=== PATIENT | female | born 1970 | race Hispanic/Latino ===

== ENCOUNTER → 2019-12-31 | Outpatient (CLI) | payer OTHER | END | disposition home or self-care (01) | LOC: RAH 09:46 | PROVIDERS: ATTEND Family Medicine | DX: Z12.31 Encounter for screening mammogram for malignant neoplasm of breast (principal) | CPT/HCPCS: 77067 ==

== ENCOUNTER → 2020-12-30 | Outpatient (CLI) | payer BC | END | disposition home or self-care (01) | LOC: RAH 09:50 | PROVIDERS: ATTEND Internal Medicine | DX: Z12.31 Encounter for screening mammogram for malignant neoplasm of breast (principal); N64.89 Other specified disorders of breast | CPT/HCPCS: 77067 ==

== ENCOUNTER → 2021-12-31 | Outpatient (CLI) | payer BC | END | disposition home or self-care (01) | LOC: RAH 08:47 | PROVIDERS: ATTEND Internal Medicine | DX: Z12.31 Encounter for screening mammogram for malignant neoplasm of breast (principal) | CPT/HCPCS: 77067 ==

== ENCOUNTER → 2024-06-15 | Outpatient (CLI) | payer BC ==
--- NOTE | 2024-06-15 10:39 | HMCIMG ---
SCREENING MAMMOGRAM REASON: Annual Exam COMPARISON: 01/06/2023 TECHNIQUE: CC and MLO views of the bilateral breasts were performed.CAD was performed as well. FINDINGS: Parenchymal density: The breasts are almost entirely fatty. There are no focal mass lesions. There are no pathologic appearing calcifications. There is no evidence of architectural distortion or skin thickening. IMPRESSION: Normal screening mammogram The patient was entered into a reminder system with a target due date for their next mammogram. BI-RADS CATEGORY 1: NEGATIVE Recommend monthly self breast exam as well as annual clinical examination. A negative x-ray should not delay biopsy if a dominant or clinically suspicious mass is present, since 8-10% of cancers are not identified by mammography. Dense breasts particularly, may obscure an underlying neoplasm. Some of these may be detected clinically and therefore, clinical examination is an essential part of breast evaluation.
== END | disposition home or self-care (01) ==
LOC: RAH 09:19
PROVIDERS: ATTEND Internal Medicine
DX: Z12.31 Encounter for screening mammogram for malignant neoplasm of breast (principal)
CPT/HCPCS: 77067

== ENCOUNTER 2024-08-04 20:06 | Emergency (ER) | payer BC ==
[~2024-08-04] VITALS: Ht 162.6 cm; Wt 133.8 kg
[2024-08-04 20:41] LABS: APPEARANCE,URINE CLOUDY (CLEAR); BILIRUBIN,URINE NEGATIVE (NEGATIVE); COLOR,URINE YELLOW (YELLOW); GLUCOSE, URINE (UA) NEGATIVE (NEGATIVE); KETONES,URINE NEGATIVE (NEGATIVE); LEUKOCYTE ESTERASE ,URINE 250 Leu/uL (NEGATIVE); NITRATE,URINE 2+ (NEGATIVE); OCCULT BLOOD,URINE NEGATIVE (NEGATIVE); PH,URINE 6.5 (5.0-8.0); PROTEIN,URINE 10 mg/dL (NEGATIVE); UROBILINOGEN,URINE 0.2 mg/dL (0.2-1.0)
[2024-08-04 20:44] LABS: ADD UA MICROSCOPIC YES
[2024-08-04 20:45] LABS: BACTERIA,URINE RARE /HPF (None Seen); MUCUS,URINE RARE LPF (None Seen); SQUAMOUS EPITHELIAL CELL,UR MANY /HPF (0-2)
--- NOTE | 2024-08-04 20:47 | ERN ---
ED Note History of Present Illness Stated Complaint: ABD PAIN Chief Complaint: Abdominal Pain Time Seen by MD: 20:07 Time Seen by Midlevel: 20:07 Dictation: Patient is a 54-year-old female with a history of hypertension, prediabetes, umbilical hernia repair in 2014 who presents to the emergency department with complaints lower abdominal pain onset this afternoon. Patient reports painful urination. Denies any hematuria, nausea vomiting or diarrhea, constipation, fevers. Allergies: Coded Allergies: No Known Drug Allergies (Unverified Allergy, Unknown, 08/04/24) Home Meds Active Scripts Nitrofurantoin Monohyd/M-Cryst (Macrobid 100 mg Capsule) 100 Mg Capsule, 1 CAP PO BID for 5 Days, #10 CAP 0 Refills Prov:NALLELYGREYARIEL BUSINESS SERVICES VICE PRESIDENT 08/04/24 Phenazopyridine HCl (Phenazopyridine HCl) 200 Mg Tablet, 1 TAB PO TID for urin alexia discomfort for 2 Days, #6 TAB 0 Refills after food Prov:ARIEL BROWNING 08/04/24 Past Medical History Past Medical History: Hypertension Surgical History: RN Note Reviewed/Agreed w/PFSH: Yes Review of System Dictation Constitutional: Negative for fever,chills, and weight loss Eyes: Negative for injury, pain,redness, and discharge ENT: Negative for injury,pain or swelling Cardiovascular: Negative for chest pain, palpitations, and edema Respiratory: Negative for shortness of breath, cough, and wheezing, Abdomen/GI: Negative for nausea, vomiting, diarrhea, and constipation positive for abdominal pain, Back: Negative for injury and pain : Negative for injury, bleeding and discharge positive for painful urination MS/Extremity: Negative for injury and deformity Skin: Negative for rash, and discoloration Neuro: Negative for headache, weakness, numbness, tingling, and seizure Psych: Negative for suicide ideation, homicidal ideation, and hallucinations Initial Vital Sign VS Vital Signs Date Time Temp Pulse Resp B/P (MAP) Pulse Ox O2 Delivery O2 Flow Rate FiO2 08/04/24 20:17 98.1 91 18 148/95 98 0 08/04/24 20:57 Room Air* 21 Physical Exam Dictation Vital Signs reviewed General Appearance: Alert, oriented x 3, no acute distress, well developed, nourished. Obese Head and Face: non-traumatic. Eyes: PERRL, pink conjunctivas, eyelid no trauma, anterior chamber with arcus senilis. Ears: Pinnas intact and no signs of trauma or erythema ear canals clear and no discharge TM no erythema Nose: No discharge, no bleeding. Oropharynx: Mouth normal, tongue pink. pharynx clear,no erythema, tonsils no exudates, no abscesses noted, mucous membrane moist Neck: Supple, non-tender, no thyromegaly, no masses, no JVD, no bruits Breast:Deferred Chest:No tenderness, no crepitus, no paradoxical movement, no retractions Lungs:Clear, well-ventilated, symmetric, no rales, no wheezing, no rhonchi, no stridor, good breath sounds bilaterally Heart: Regular rate, regular rhythm, no murmur, no gallops Vascular: no peripheral edema, Abdomen: Soft, positive bowel sounds, nondistended, no guarding, Tender to left and right lower quadrant, no rebound, no masses no hepatomegaly, no splenomegaly, no Lozoya's sign, no hernias. Rectal: Deferred Genital: Deferred Neurological: Normal speech, motor function intact, sensory function intact Musculoskeletal: Neck nontender, full range of motion, back nontender, full range of motion, Extremities: nontender, full range of motion Skin: Color pink, dry, no turgor, no rash, no lacerations, no abrasions, no contusions. Lymphatic: Deferred Results (Laboratory/Radiology) Laboratory/Radiology Laboratory Tests Test 08/04/24 20:29 08/04/24 20:50 Urine Color YELLOW (YELLOW) Urine Appearance CLOUDY (CLEAR) H Urine pH 6.5 (5.0-8.0) Urine Specific [place] 1.028 (1.001-1.031) Urine Protein 10 mg/dL (NEGATIVE) H Urine Glucose (UA) NEGATIVE mg/dL (NEGATIVE) Urine Ketones NEGATIVE mg/dL (NEGATIVE) Urine Occult Blood NEGATIVE (NEGATIVE) Urine Nitrate 2+ (NEGATIVE) H Urine Bilirubin NEGATIVE mg/dL (NEGATIVE) Urine Urobilinogen 0.2 mg/dL (0.2-1.0) Urine Leukocyte Esterase 250 Arabella/uL (NEGATIVE) H Urine RBC 6-10 /HPF (0-1) H Urine WBC 11-25 /HPF (0-1) H Urine Squamous Epithelial Cells MANY /HPF (0-2) Urine Bacteria RARE /HPF (None Seen) White Blood Count 6.3 K/uL (4.8-10.8) Red Blood Count 4.82 MIL/uL (4.00-5.50) Hemoglobin 13.1 g/dL (12.0-16.0) Hematocrit 41.0 % (36-48) Mean Corpuscular Volume 85.1 fL (79-99) Mean Corpuscular Hemoglobin 27.2 pg (27.0-33.0) Mean Corpuscular Hemoglobin Concent 32.0 g/dL (32.0-36.0) Red Cell Distribution Width 13.2 % (11.0-15.5) Platelet Count 183 K/uL (130-400) Mean Platelet Volume 11.7 fL (7.5-10.5) H Immature Granulocyte % (Auto) 0.2 % (0-1) Neutrophils (%) (Auto) 69.6 % (40.0-77.0) Lymphocytes (%) (Auto) 22.6 % (21.0-51.0) Monocytes (%) (Auto) 4.4 % (3.0-13.0) Eosinophils (%) (Auto) 3.0 % (0.0-8.0) Basophils (%) (Auto) 0.2 % (0.0-5.0) Neutrophils # (Auto) 4.4 K/uL (1.8-7.7) Lymphocytes # (Auto) 1.4 K/uL (1.0-4.8) Monocytes # (Auto) 0.3 K/uL (0.1-1.0) Eosinophils # (Auto) 0.19 K/uL (0.00-0.70) Basophils # (Auto) 0.01 K/uL (0.00-0.20) Absolute Immature Granulocyte (auto 0.01 K/uL (0-1) Nucleated Red Blood Cells 0.0 % (0.0-0.19) Sodium Level 140 mmol/L (136-145) Potassium Level 4.2 mmol/L (3.5-5.1) Chloride Level 102 mmol/L (101-111) Carbon Dioxide Level 33 mmol/L (21-32) H Blood Urea Nitrogen 10 mg/dL (7-18) Creatinine 0.5 mg/dL (0.5-1.0) Glomerular Filtration Rate Calc 111 mL/min (>90) Random Glucose 129 mg/dL (70-105) H Total Calcium 9.1 mg/dL (8.5-10.1) Total Creatine Kinase 79 U/L (21-232) Troponin I High Sensitivity 4.0 ng/L (4-50) Lipase 45 U/L (16-77) REASON: lower abd pain right and left ORDERING PHYSICIAN: ARIEL BROWNING PROCEDURE: ABD PEL W - CT ABDOMEN/PELVIS W/CONTRAST CT ABDOMEN/PELVIS W/CONTRAST HISTORY: Abdominal pain COMPARISON: None TECHNIQUE: Multiple sequential axial images of the abdomen and pelvis were obtained from the dome of the diaphragm through symphysis pubis. Patient was given 75 cc of Isovue through intravenous route. Oral contrast was not given. FINDINGS: No pleural effusion is seen bilaterally. There is no evidence of parenchymal disease or pulmonary nodule of the visualized lower lungs. Degenerative changes of the thoracolumbar spine are present. The heart is not enlarged. Liver is enlarged and fatty changes measuring 23 cm. Gallbladder is distended. The liver, spleen, adrenal glands and pancreas are unremarkable. There is no evidence of hydronephrosis bilaterally. No evidence of renal stone is seen. Fecal material is seen in the colon. There are normal size retroperitoneal and mesenteric lymph nodes. No ascites is seen. Atherosclerotic changes are present. There is fluid-filled colon may be related to enterocolitis. Pelvic sidewalls are symmetric bilaterally. Bladder is poorly distended. IMPRESSION: 1. Fluid-filled colon may be related to enterocolitis. Fecal material is seen in the colon. Labs Reviewed?: Yes EKG: (+) rhythm (Sinus rhythm) EKG Comment: Date:08/04/2024 Time:2044 Ventricular rate:88 MS interval:160 QRS duration:80 QT/QTc:480 EKG interpretation: Sinus rhythm Reviewed by ED Attending ED Course ED Course Orders Procedure Category Date Status Time Vital Signs Per CPOE 08/04/24 Transmitted Routine 20:20 Saline Lock Iv CPOE 08/04/24 Transmitted 20:20 Cbc With Differential LAB 08/04/24 Complete 20:20 Urinalysis Profile LAB 08/04/24 Complete 20:20 Basic Metabolic Panel LAB 08/04/24 Complete 20:20 0.9%Nacl 1000ml (Ns PHA 08/04/24 Complete 1000ml) 21:00 Morphine 4mg Syg PHA 08/04/24 Complete (Morphine 4mg Syg) 21:00 Ondansetron 4mg Inj PHA 08/04/24 Complete (Zofran 4mg Inj) 21:00 12 Lead Ekg Tracing- EKG 08/04/24 Complete Technical 20:36 Culture Urine JAMES 08/04/24 In Process 20:44 Cardiac Panel LAB 08/04/24 Complete 20:20 Lipase LAB 08/04/24 Complete 20:20 Ct Abdomen/Pelvis CT 08/04/24 Resulted W/Contrast 21:24 Ceftriaxone 1g Vial PHA 08/04/24 Complete (Rocephine 1g Inj) 22:00 Iohexol (Omnipaque) PHA 08/04/24 Complete 22:16 Current Medications Medications (Trade) Dose Ordered Sig/Alex Route PRN Reason Start Time Stop Time Status Last Admin Dose Admin Ceftriaxone Sodium (ROCEphine 1G INJ) 1 gm ONCE ONCE IVPB 08/04/24 22:00 08/04/24 22:01 DC 08/04/24 22:14 Iohexol (Omnipaque) 75 ml STK-MED ONCE IV 08/04/24 22:16 08/04/24 22:16 DC Morphine Sulfate (morPHINE 4MG SYG) 4 mg ONCE ONCE IVP 08/04/24 21:00 08/04/24 21:01 DC 08/04/24 21:34 Ondansetron HCl (zoFRAN 4MG INJ) 4 mg ONCE ONCE IVP 08/04/24 21:00 08/04/24 21:01 DC 08/04/24 21:33 Sodium Chloride 1,000 ml @ 125 mls/hr ONCE ONCE IV 08/04/24 21:00 08/04/24 23:02 DC 08/04/24 21:33 Vital Signs Date Time Temp Pulse Resp B/P (MAP) Pulse Ox O2 Delivery O2 Flow Rate FiO2 08/04/24 23:01 98.1 88 18 132/88 98 Room Air* 0 08/04/24 20:57 98.1 91 18 148/95 98 Room Air* 0 08/04/24 20:17 98.1 91 18 148/95 98 0 Medical Decision Making MDM Patient is a 54-year-old female with a history of hypertension, prediabetes, umbilical hernia repair in 2014 who presents to the emergency department with complaints lower abdominal pain onset this afternoon. Patient reports painful urination. Denies any hematuria, nausea vomiting or diarrhea, constipation, fevers. CBC showed no leukocytosis, no anemia, chemistry showed no electrolyte imbalance, normal renal function, negative lipase, negative troponin, urinalysis positive for leukocyte esterase and nitrites. CT showed fluid-filled colon may be related to enterocolitis your fecal material seen in the colon. Patient with suprapubic abdominal pain. The probably related to UTI. We will be treated with the antibiotics. Patient in no acute distress, nontoxic appearance. Differential diagnosis: UTI, diverticulitis, dehydration, appendicitis Need for hospitalization: Patient does not meet criteria for hospitalization. There are no social concerns with this patient. DX & DISP Disposition: Discharge Departure Impression: Primary Impression: UTI (urinary tract infection) Additional Impression: Abdominal pain Condition: Stable Scripts Nitrofurantoin Monohyd/M-Cryst (Macrobid 100 mg Capsule) 100 Mg Capsule 1 CAP PO BID for 5 Days, #10 CAP 0 Refills Prov: ARIEL BROWNING BUSINESS SERVICES VICE PRESIDENT 08/04/24 Phenazopyridine HCl (Phenazopyridine HCl) 200 Mg Tablet 1 TAB PO TID for urinary discomfort for 2 Days, #6 TAB 0 Refills after food Prov: ARIEL BROWNING BUSINESS SERVICES VICE PRESIDENT 08/04/24 Additional Instructions: Please take full course of antibiotics as prescribed. azo will help with your symptoms but does not treat your infection so make sure you take antibiotics. It may also change the color of your urine. Please follow up with pcp and urine culture. FOLLOW-UP WITH PRIMARY CARE PROVIDER IN 1 TO 2 DAYS. TAKE MEDICATIONS DIRECTED HERE IN THE EMERGENCY ROOM. OKAY TO CONTINUE HOME MEDICATIONS UNLESS OTHERWISE DISCUSSED DURING YOUR VISIT IN THE EMERGENCY ROOM TODAY. RETURN TO YOUR NEAREST EMERGENCY ROOM IF SYMPTOMS WORSEN OR IF THERE IS NO IMPROVEMENT. CALL 911 IF YOU NEED IMMEDIATE ASSISTANCE. TAKE TYLENOL OR MOTRIN [id number] NEEDED AND IF NO CONTRAINDICATIONS ARE PRESENT. INCREASE ORAL HYDRATION. A WOUND CULTURE OR URINE CULTURE WAS ORDERED HERE IN THE EMERGENCY ROOM DEPARTMENT PLEASE FOLLOW-UP WITH PRIMARY CARE PROVIDER AND ADVISE THEM TO GET REPEAT PORTS FROM OUR FACILITY. IF YOU HAD ANY JIM WRAP/SPLINTS THAT WERE APPLIED HERE, PLEASE DO NOT REMOVE THEM UNTIL YOU SEE YOUR PRIMARY CARE OR SPECIALTY. Referrals: JAROD COFFMAN (PCP) Time of Disposition: 22:52 I have reviewed the case, and I agree with, Diagnosis and Plan ARIEL BROWNING Aug 04, 2024 20:47 HEMA BRANDT DO Aug 04, 2024 23:29
--- NOTE | 2024-08-04 20:48 | EKG ---
[facility] Test Date: 2024-08-04 Test Time: 20:45:15 Pat Name: EHSAN CROONA Department: [facility] Room: Gender: F Community Resource Consultant: [id number] : [id number] Requested By: ARIEL BROWNING Order Number: [id number] Reading MD: Jan Diaz Measurements Intervals [place] Rate: 88 P: 0 [place]: 160 QRS: 11 QRSD: 80 T: 27 QT: 397 QTc: 480 Interpretive Statements Sinus rhythm No previous ECG available for comparison Electronically Signed On 08-05-2024 19:15:18 COMMUNITY DEVELOPMENT PLANNER by Jan Diaz Please click the below link to view image of tracing.
[2024-08-04 21:13] LABS: BASOPHILS # (AUTO) 0.01 K/uL (0.00-0.20); BASOPHILS % (AUTO) 0.2 % (0.0-5.0); EOSINOPHILS # (AUTO) 0.19 K/uL (0.00-0.70); IMMATURE GRANULOCYTE ABSOLUTE 0.01 K/uL (0-1); LYMPHOCYTES # (AUTO) 1.4 K/uL (1.0-4.8); LYMPHOCYTES % (AUTO) 22.6 % (21.0-51.0); MEAN CORPUSCULAR HEMOGLOBIN 27.2 pg (27.0-33.0); MEAN CORPUSCULAR VOLUME 85.1 fL (79-99); MONOCYTES # (AUTO) 0.3 K/uL (0.1-1.0); MONOCYTES % (AUTO) 4.4 % (3.0-13.0); NEUTROPHILS # (AUTO) 4.4 K/uL (1.8-7.7); NEUTROPHILS % (AUTO) 69.6 % (40.0-77.0); PLATELET COUNT (AUTO) 183 K/uL (130-400); RED BLOOD CELL COUNT(AUTO) 4.82 MIL/uL (4.00-5.50); RED CELL DISTRIBUTION WIDTH 13.2 % (11.0-15.5); WHITE BLOOD COUNT (AUTO) 6.3 K/uL (4.8-10.8)
[2024-08-04 21:21] LABS: CREATININE 0.5 mg/dL (0.5-1.0); POTASSIUM 4.2 mmol/L (3.5-5.1)
[2024-08-04] MEDS: ondanSETRON 4MG INJ IVP ONE (21:33)
[2024-08-04] MEDS: 0.9%NACL 1000ML 1,000 ML IV ONE (21:33)
[2024-08-04] MEDS: morPHINE 4 MG SYG IVP ONE (21:34)
[2024-08-04] MEDS: cefTRIAXone 1G VIAL IVPB ONE (22:14)
[2024-08-04] MEDS ORDERED: IOHEXOL-350 75 ML VIAL IV ONE (22:16)
--- NOTE | 2024-08-04 22:45 | HMCIMG ---
CT ABDOMEN/PELVIS W/CONTRAST HISTORY: Abdominal pain COMPARISON: None TECHNIQUE: Multiple sequential axial images of the abdomen and pelvis were obtained from the dome of the diaphragm through symphysis pubis. Patient was given 75 cc of Isovue through intravenous route. Oral contrast was not given. FINDINGS: No pleural effusion is seen bilaterally. There is no evidence of parenchymal disease or pulmonary nodule of the visualized lower lungs. Degenerative changes of the thoracolumbar spine are present. The heart is not enlarged. Liver is enlarged and fatty changes measuring 23 cm. Gallbladder is distended. The liver, spleen, adrenal glands and pancreas are unremarkable. There is no evidence of hydronephrosis bilaterally. No evidence of renal stone is seen. Fecal material is seen in the colon. There are normal size retroperitoneal and mesenteric lymph nodes. No ascites is seen. Atherosclerotic changes are present. There is fluid-filled colon may be related to enterocolitis. Pelvic sidewalls are symmetric bilaterally. Bladder is poorly distended. IMPRESSION: 1. Fluid-filled colon may be related to enterocolitis. Fecal material is seen in the colon. CT was performed with one or more following dose reduction techniques: automated exposure control, adjustment of the mA and kv according to patient's size, or use of a iterative reconstruction technique.
[2024-08-04] MEDS ORDERED: NITR100C4 PO (22:52)
[2024-08-04] MEDS ORDERED: PHEN-948 PO (22:52)
[2024-08-04 23:01] VITALS: BP 132/88; PULSE 88; RESP 18; TEMP 98.1; O2SAT 98
== END 2024-08-04 23:02 | disposition home or self-care (01) ==
LOC: EDH 20:06
DX: N39.0 Urinary tract infection, site not specified (principal); R10.30 Lower abdominal pain, unspecified; I10 Essential (primary) hypertension; Z79.899 Other long term (current) drug therapy
CPT/HCPCS: 99284; 74177; 96374; 96375; 82550; 84484; 80048; 83690; 85025; 87086; 81001; 36415; 93005; J7030; J0696; J2405; J2270; Q9967; 99285